=== PATIENT | female | born 1945 | race Hispanic/Latino ===

== ENCOUNTER 2019-04-28 18:30 | Emergency (ER) | payer MEDICARE, OTHER ==
[2019-04-28] MEDS ORDERED: ACETAMINOPHEN 325 MG/10.15 ML ORAL LIQD UNIT DOSE PO ONE (19:36)
[2019-04-28] MEDS ORDERED: ACETAMINOPHEN 325 MG TAB ONE (19:39)
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
[2019-04-28] MEDS ORDERED: IBUPROFEN 600 MG TAB PO ONE (20:56)
[2019-04-28] MEDS ORDERED: ONDANSETRON 4 MG ODT TAB PO ONE (20:56)
[2019-04-28] MEDS ORDERED: BUTALB/ACETAMINOPHEN/CAFFEINE TAB PO ONE (20:56)
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
[2019-04-28 22:47] VITALS: BP 158/69
== END 2019-04-28 22:47 | disposition home or self-care (01) ==
LOC: ED 18:30
DX: G44.311 Acute post-traumatic headache, intractable (principal); M62.838 Other muscle spasm; I10 Essential (primary) hypertension; Z98.890 Other specified postprocedural states; Z79.899 Other long term (current) drug therapy
CPT/HCPCS: 70450; 72040; 72125; Q0162